=== PATIENT | male | born 1955 | race Caucasian/White ===

== ENCOUNTER → 2024-01-01 15:40 | Outpatient (REF) | payer MEDICARE, BC, SELFPAY | LOC: RAD 15:40 | PROVIDERS: ATTENDING PHYSICIAN Family Medicine | DX: R05.1 Acute cough (principal) | CPT/HCPCS: 71046 ==

== ENCOUNTER → 2024-10-17 09:20 | Outpatient (REF) | payer MEDICARE, BC, SELFPAY | LOC: RAD 09:20 | PROVIDERS: ATTENDING PHYSICIAN Nurse Practitioner Family; FAMILY PHYSICIAN Family Medicine | DX: R07.81 Pleurodynia (principal) | CPT/HCPCS: 71046; 71111 ==

== ENCOUNTER → 2025-05-08 14:26 | Outpatient (REF) | payer MEDICARE, BC, SELFPAY | LOC: RAD 14:26 | PROVIDERS: ATTENDING PHYSICIAN Family Medicine | DX: M54.50 Low back pain, unspecified (principal) | CPT/HCPCS: 72110 ==

== ENCOUNTER 2025-07-14 15:42 | Emergency (ER) | payer MEDICARE, BC, SELFPAY ==
[2025-07-14 15:48] VITALS: BP 136/72
--- NOTE | 2025-07-14 18:55 | ED.GENMED ---
History of Present Illness
General
Chief Complaint: DVT/Possible Blood Clot
Source: patient
Exam Limitations: none
Time Seen by Provider: 07/14/25 18:48
History of Present Illness
History of Present Illness:
70-year-old male presents with swelling to the left lower leg. Recent fracture of his distal fibula. Had a cast boot on. Seen by orthopedics today and sent over to rule out DVT. No distal numbness tingling or weakness. No chest pain or
shortness of breath. No fever or chills. Has had some mild swelling to both legs but asymmetrically more to the left.
Past History
Past History
ED Past Medical History: HTN; Negative IDDM or NIDDM
ED Past Surgical History: Negative Cardiac
Social History
Tobacco: Non-smoker
Alcohol: None
Drug: None
Personal:
Living: with family
Employment: Employed
Family History
Family History: Negative Early CAD
Review of Systems
Review of Systems
All Other Systems: Not applicable
Respiratory: Reports no symptoms
Cardiac: Reports no symptoms
Phy Exam
Physical Exam
Physical Exam:
GENERAL: Alert and oriented in no apparent distress
CARDIAC: Regular rate and rhythm without any obvious murmurs.
LUNGS: Clear breath sounds,normal
NEUROLOGICAL: Alert and oriented , grossly non-focal
SKIN: Warm and dry, no rash or lesion, some ecchymosis to the lateral ankle and to the distal 2nd and 3rd toes and distal foot on the left. No erythema no warmth. No cellulitis.
MUSCULOSKELETAL: Asymmetrical edema left lower leg below the knee greater than right. Nontender. No fluctuance. Good distal pulses and color.
PSYCH: Normal and appropriate interaction.
Course
Orders/Labs/Results
Orders:
Orders
07/14/25 15:43
Legs, left US [US Periph Venous LOWER Ext LT] Urgent
Comment:
Reason For Exam: r/o dvt
Vital Signs
Initial and Last Documented VS:
Initial Vital Signs
Temp Pulse Resp BP Pulse Ox
98.7 F 68 18 136/72 98
07/14/25 15:48 07/14/25 15:48 07/14/25 15:48 07/14/25 15:48 07/14/25 15:48
Last Documented Vital Signs
Temp Pulse Resp BP Pulse Ox
98.7 F 68 18 136/72 98
07/14/25 15:48 07/14/25 15:48 07/14/25 15:48 07/14/25 15:48 07/14/25 18:57
MDM/Problems Addressed
Differential Diagnosis Includes:
Swelling secondary to fracture versus DVT. Ultrasound pending. Nothing to support compartment syndrome infectious issue etc.
*Radiology
Radiology exam reviewed: radiology read reviewed (No DVT)
*Pulse Oximetry
SaO2: 98
Oxygen Mode of Delivery: Room air
Patient hypoxic: no (98)
*Critical Care Note
Total Time (30-74mins, 75-104mins- exclusive of procedures): Not Applicable
Update Note
Update Note:
Patient stable. No DVT. Neurovascular intact. No sign of infection. Discharged to follow-up
ED Attending Note
-
Portions of this chart may have been created with voice recognition software.� Occasional wrong word or��sound alike� substitutions may have occurred due to the inherent limitations of voice recognition software.
Discharge Plan
Departure
Patient Disposition: Home (Routine Discharge)
Date of Disposition: 07/14/25
Time of Disposition: 19:46
Patient with high blood pressure during this ER visit?: Yes
Discharge Problem:
Left leg swelling, Status post fibula fracture
Instructions: BLOOD PRESSURE
Prescriptions:
No Action
metformin 500 mg Tablet
500 mg PO DAILY
amlodipine 10 mg Tablet
10 mg PO DAILY
aspirin 81 mg Capsule
81 mg PO DAILY
omeprazole 40 mg Capsule,Delayed Release(Dr/Ec)
40 mg PO DAILYPRN PRN (Reason: gerd)
ibuprofen [Advil] 200 mg Tablet
200 mg PO Q6HPRN PRN (Reason: mild pain)
zinc Tablet,Chewable
1 tab PO DAILY
famotidine 20 mg Tablet
20 mg PO DAILYPRN PRN (Reason: upset stomach)
olmesartan 40 mg Tablet
40 mg PO DAILY
rosuvastatin 10 mg Tablet
10 mg PO DAILY
cholecalciferol (vitamin D3) [Vitamin D3] 25 mcg (1,000 unit) Tablet
25 mcg PO DAILY
pantoprazole [Protonix] 40 mg tablet,delayed release (DR/EC)
40 mg PO DAILY Qty: 30 0RF
Referrals:
Natividad Bhatti MD [Family Provider, Family Practice] - Follow up in 2-3 days
Activity Restrictions/Additional Instructions:
Try to keep the leg elevated when you are resting
Repeat ultrasound in 7 to 10 days if still swollen
Ultrasound sooner with progression of symptoms warmth erythema chest pain shortness of breath or any other concerning symptoms
Interventions
Interventions:
*Risk Screen - Suicide Last Done: 07/14/25 15:49
*General Assessment Last Done: 07/14/25 15:49
*Neglect/Abuse Screening Last Done: 07/14/25 15:49
*ED COVID-19 Vaccine History Last Done: 07/14/25 15:49
*Nursing Disposition Last Done: 07/14/25 19:59
ED-Peripheral Vascular Assessment Last Done: 07/14/25 19:15
ED-Skin Assessment Last Done: 07/14/25 19:15
Discharge Date and Time
Discharge Date/Time: 07/14/25 20:00
Print Language: ALBANIAN
== END 2025-07-14 20:00 | disposition home or self-care (01) ==
LOC: EMR 15:42
PROVIDERS: EMERGENCY PHYSICIAN Emergency Medicine; FAMILY PHYSICIAN Family Medicine
DX: R22.42 Localized swelling, mass and lump, left lower limb (principal); I10 Essential (primary) hypertension; Z87.81 Personal history of (healed) traumatic fracture
CPT/HCPCS: 99284; 93971